=== PATIENT | female | born 1995 | race Caucasian/White ===

== ENCOUNTER 2020-10-09 21:50 | Inpatient (IN) ==
[2020-10-09] MEDS ORDERED: BUTORPHANOL 2 MG/ML VIAL IV PRN (22:02)
[2020-10-09] MEDS ORDERED: ACETAMINOPHEN 325 MG TABLET PO PRN (22:02)
[2020-10-09] MEDS ORDERED: LACTATED RINGERS 500 ML IV PRN (22:02)
[2020-10-09 22:35] LABS: Basophils % 0.4 % (0.0-0.8); Eosinophils # 0.1 10*3/uL (0.0-0.87); Eosinophils % 1.2 % (0.00-10.9); Hematocrit 32.5 VOL% (35.7-47.0); Hemoglobin 10.4 GM/DL (12.0-16.0); Immature Granulocytes % 0.7 %; Immature Granulocytes Absolute 0.07 #; Lymphocytes # 2.9 10*3/uL (1.4-4.0); Lymphocytes % 26.9 % (21.3-54.2); Mean Corpuscular Volume 77.4 FL (87-102); Monocytes % 8.5 % (1.7-12.7); NRBC # 0.02 10*3/uL; Neutrophils % 62.3 % (38.7-73.9); Platelet Count 290 T/CUMM (130-400); Red Cell Distribution Width 14.8 % (9.3-17.3); White Blood Count 10.6 T/CUMM (4-12)
[2020-10-10] MEDS: LACTATED RINGERS 1,000 ML IV SCH ×3 (02:23→18:42)
[2020-10-10] MEDS: MEPERIDINE 50 MG/1 ML VIAL IV PRN ×4 (02:24→12:57)
[2020-10-10] MEDS: ONDANSETRON 4 MG/2 ML VIAL IV PRN ×3 (03:52→19:55)
[2020-10-10] MEDS ORDERED: diphenhydrAMINE 50 MG/1 ML VIAL IV PRN ×2 (13:07)
[2020-10-10] MEDS ORDERED: ePHEDrine 50 MG/ML VIAL IV PRN (13:07)
[2020-10-10] MEDS ORDERED: NALOXONE 0.4 MG/ML VIAL IV PRN (13:07)
[2020-10-10] MEDS ORDERED: CITRIC ACID/SODIUM CITRATE 30 ML UDCUP PO ONE (13:09)
[2020-10-10] MEDS ORDERED: FAMOTIDINE 20 MG/2 ML VIAL IV ONE (13:10)
[2020-10-10] MEDS ORDERED: OXYTOCIN/LR 20 UNIT/1,000 ML BAG IV SCH (13:30)
[2020-10-10] MEDS: fentaNYL 2 MCG/ROPIV 0.2% EPID 100 ML EPIDURAL SCH ×2 (13:51→20:55)
[2020-10-10 16:22] LABS: Bilirubin,Urine Negative (Negative); Blood, Urine Small mg/dL (Negative); Glucose,Urine (UA) Negative (Negative); Ketones,Urine Negative (Negative); Mucus,Urine Many /LPF (Occasional); Nitrite,Urine Negative (Negative); Protein,Urine Negative; RBC,Urine 2 /HPF (0-4); Squamous Epithelial Cell,Urine Occasional /HPF (0-10); Urine Appearance CLEAR (Clear); Urine Color Yellow (Yellow); Urine Specific Gravity 1.019 (1.001-1.035); Urine Urobilinogen < 2.0 EU/DL (0.2-1.0); WBC,Urine <1 /HPF (0-6)
[2020-10-10] MEDS ORDERED: miSOPROStoL 200 MCG TABLET ONE (19:50)
[2020-10-10] MEDS ORDERED: TRANEXAMIC ACID 1,000 MG/10 ML VIAL ONE ×2 (19:50→19:51)
[2020-10-10] MEDS ORDERED: METHYLERGONOVINE 0.2 MG/1 ML AMP ONE (19:51)
[2020-10-10] MEDS ORDERED: OXYTOCIN/LR 20 UNIT/1,000 ML BAG IV ONE ×2 (19:51→21:29)
[2020-10-10] MEDS ORDERED: CARBOPROST TROMETHAMINE 250 MCG/ML AMP IM ONE ×2 (19:51→21:18)
[2020-10-10 21:20] LABS: Cord Arterial Blood HCO3 19.6 MMOL/L
[2020-10-10] MEDS ORDERED: miSOPROStoL 200 MCG TABLET PO ONE (21:20)
[2020-10-10 21:22] LABS: Cord Venous Blood HCO3 21.4 MMOL/L; Cord Venous Blood PCO2 45.3 MMHG; Cord Venous Blood PO2 24.1
[2020-10-10] MEDS ORDERED: OXYTOCIN 10 UNIT/ML VIAL ONE (21:22)
[2020-10-10] MEDS ORDERED: OXYTOCIN 10 UNIT/ML VIAL IM ONE (21:24)
[2020-10-10] MEDS ORDERED: HYDROCORTISONE 2.5% RECTAL CREAM 30 GM TUBE TOP PRN (21:29)
[2020-10-10] MEDS ORDERED: RHO(D) IMMUNE GLOBULIN 300 MCG SYRINGE IM ONE (21:29)
[2020-10-10] MEDS ORDERED: MEASLES/MUMPS/RUBELLA VACCINE 0.5 ML VIAL SUBCUT ONE (21:29)
[2020-10-10] MEDS ORDERED: ONDANSETRON 4 MG/2 ML VIAL IV ONE (21:29)
[2020-10-10] MEDS ORDERED: LANOLIN 50% CREAM 0.3 OZ TUBE TOP PRN (21:29)
[2020-10-10] MEDS ORDERED: DIPH/TET/ACEL PERT BOOSTER VACCINE 0.5 ML VIAL IM ONE (21:29)
[2020-10-10] MEDS ORDERED: ACETAMINOPHEN 325 MG TABLET PO PRN (21:29)
[2020-10-10] MEDS ORDERED: oxyCODONE/ACETAMINOPHEN 5-325 MG TABLET PO PRN (21:29)
[2020-10-10] MEDS ORDERED: WITCH HAZEL PADS 100/JAR TOP PRN (21:29)
[2020-10-10] MEDS ORDERED: BISACODYL 10 MG SUPP RECTAL PRN (21:29)
[2020-10-10] MEDS ORDERED: BENZOCAINE 20%/MENTHOL 0.5% SPRAY 56 GM CAN TOP PRN (21:29)
[2020-10-10] MEDS ORDERED: ONDANSETRON 4 MG/2 ML VIAL IV PRN (21:29)
[2020-10-10] MEDS: IBUPROFEN 800 MG TABLET PO PRN (22:52)
[2020-10-11] MEDS ORDERED: SODIUM CHLORIDE 0.9% 1,000 ML IV ONE (00:35)
[2020-10-11 00:55] LABS: Basophils # 0.1 10*3/uL (0.0-0.2); Basophils % 0.3 % (0.0-0.8); Eosinophils % 0.1 % (0.00-10.9); Hematocrit 23.8 VOL% (35.7-47.0); Immature Granulocytes % 0.6 %; Immature Granulocytes Absolute 0.11 #; Lymphocytes # 1.7 10*3/uL (1.4-4.0); Lymphocytes % 8.7 % (21.3-54.2); Mean Corpuscular HGB Conc 31.9 GM/DL (32-36); Mean Corpuscular Volume 77.8 FL (87-102); Mean Platelet Volume 10.7 FL (9.6-12.0); Monocytes % 5.7 % (1.7-12.7); Neutrophils % 84.6 % (38.7-73.9); Platelet Count 242 T/CUMM (130-400)
[2020-10-11 01:02] LABS: Hemoglobin 7.6 GM/DL (12.0-16.0)
[2020-10-11 01:03] LABS: Red Blood Count 3.06 MC/CUMM (3.8-5.5); White Blood Count 19.7 T/CUMM (4-12)
[2020-10-11] MEDS ORDERED: SODIUM CHLORIDE 0.9% 1,000 ML IV PRN (01:07)
[2020-10-11 01:21] LABS: Hypochromasia 1+; Platelet Estimate Normal; Polychromasia Few
[2020-10-11] MEDS: IBUPROFEN 800 MG TABLET PO PRN ×2 (05:09→13:09)
[2020-10-11 06:34] LABS: Basophils % 0.2 % (0.0-0.8); Eosinophils % 0.1 % (0.00-10.9); Hematocrit 27.1 VOL% (35.7-47.0); Hemoglobin 8.9 GM/DL (12.0-16.0); Immature Granulocytes % 0.4 %; Immature Granulocytes Absolute 0.07 #; Lymphocytes # 1.5 10*3/uL (1.4-4.0); Lymphocytes % 8.2 % (21.3-54.2); Mean Corpuscular HGB Conc 32.8 GM/DL (32-36); Mean Corpuscular Volume 79.2 FL (87-102); Mean Platelet Volume 11.1 FL (9.6-12.0); Monocytes % 7.2 % (1.7-12.7); Neutrophils % 83.9 % (38.7-73.9); Platelet Count 204 T/CUMM (130-400); Red Blood Count 3.42 MC/CUMM (3.8-5.5); Red Cell Distribution Width 16.1 % (9.3-17.3); White Blood Count 18.1 T/CUMM (4-12)
[2020-10-11] MEDS: DOCUSATE SODIUM 100 MG CAPSULE PO SCH ×2 (08:20→20:44)
[2020-10-11] MEDS: oxyCODONE/ACETAMINOPHEN 5-325 MG TABLET PO PRN ×3 (09:05→20:44)
[2020-10-11] MEDS: FERROUS SULFATE 325 MG TABLET PO SCH (22:21)
[2020-10-12] MEDS: oxyCODONE/ACETAMINOPHEN 5-325 MG TABLET PO PRN ×2 (03:03→08:24)
[2020-10-12] MEDS: FERROUS SULFATE 325 MG TABLET PO SCH (08:24)
[2020-10-12] MEDS: DOCUSATE SODIUM 100 MG CAPSULE PO SCH (08:24)
[2020-10-12 09:25] VITALS: BP 123/79
== END 2020-10-12 13:10 | disposition home or self-care (01) | DRG 807 ==
LOC: N.LDOUT 21:50 → N.LD 21:54 → N.OB 10-11 10:25
PROVIDERS: ADMIT Specialist; ATTEND Specialist